=== PATIENT | female | born 1990 | race African-American/Black ===

== ENCOUNTER 2025-08-16 20:53 | Emergency (ER) | payer SELFPAY ==
[~2025-08-16] VITALS: Ht 162.6 cm; Wt 79.0 kg
[2025-08-16 21:15] VITALS: O2SAT 95
[2025-08-16 21:31] VITALS: BP 127/78; PULSE 106; RESP 18; TEMP 36.7; O2SAT 99
== END 2025-08-17 03:37 | disposition left against medical advice (07) ==
LOC: ER 20:53
DX: M54.9 Dorsalgia, unspecified (principal); M79.672 Pain in left foot; M79.671 Pain in right foot
CPT/HCPCS: 99281